=== PATIENT | female | born 2000 | race African-American/Black ===

== ENCOUNTER 2021-05-11 16:22 | Emergency (ER) | payer MEDICAID ==
[~2021-05-11] VITALS: Ht 154.9 cm; Wt 56.0 kg
[2021-05-11 16:27] VITALS: BP 116/71
[2021-05-11] MEDS ORDERED: CEFTRIAXONE SODIUM 500 MG/VIAL IM ONE (17:00)
[2021-05-11] MEDS ORDERED: LIDOCAINE HCL 1% 20ML VIAL (Pyxis) INJ INFIL ONE (17:00)
[2021-05-11] MEDS ORDERED: LIDOCAINE HCL 1% 10 MG/ML 10ML VIAL IJ NR (17:45)
[2021-05-11] MEDS ORDERED: DOXY100C5 MT (17:57)
[2021-05-12] MEDS ORDERED: METR-167 MT (20:47)
[2021-05-15 10:11] LABS: NEISSERIA GONORRHOEAE NAA Positive (Negative)
== END 2021-05-11 18:13 | disposition home or self-care (01) ==
LOC: ER 16:22
DX: Z11.3 Encounter for screening for infections with a predominantly sexual mode of transmission (principal); N76.0 Acute vaginitis
CPT/HCPCS: 87210; 87491; 87591; 96372; 99283; J0696; J3490

== ENCOUNTER 2021-06-23 15:41 | Emergency (ER) | payer OTHER, MEDICAID ==
[~2021-06-23] VITALS: Ht 167.6 cm; Wt 54.0 kg
[~2021-06-23 15:41] MED LIST: DOXY100C5 MT; METR-167 MT
[2021-06-23 15:58] VITALS: BP 114/70
[2021-06-23] MEDS ORDERED: ALBU18HF2 IH (17:53)
== END 2021-06-23 18:10 | disposition home or self-care (01) ==
LOC: ER 15:41
DX: R05.9 Cough, unspecified (principal); Z98.890 Other specified postprocedural states
CPT/HCPCS: 71045; 81025; 99283

== ENCOUNTER 2021-10-16 06:28 | Emergency (ER) | payer MEDICAID ==
[~2021-10-16] VITALS: Ht 152.4 cm; Wt 52.2 kg
[~2021-10-16 06:28] MED LIST changes: +ALBU18HF2 IH
[2021-10-16] MEDS ORDERED: ACETAMINOPHEN 500MG TABLET PO ONE (07:30)
[2021-10-16 07:45] VITALS: BP 138/67
== END 2021-10-16 07:45 | disposition home or self-care (01) ==
LOC: ER 06:28
DX: S61.305A Unspecified open wound of left ring finger with damage to nail, initial encounter (principal); Y04.0XXA Assault by unarmed brawl or fight, initial encounter; Y93.89 Activity, other specified; Y92.89 Other specified places as the place of occurrence of the external cause
CPT/HCPCS: 99281; Z7610